=== PATIENT | male | born 1945 | race Caucasian/White ===

== ENCOUNTER 2017-05-04 16:35 | Emergency (ER) | payer OTHER ==
[~2017-05-04] VITALS: Ht 167.6 cm; Wt 93.9 kg
[~2017-05-04 16:35] MED LIST: CARVEDILOL12.5 M1 PO; COREG12.5 MG PO; LISINOPRIL10 MG PO; LORAZEPAM0.5 MG PO; OMEPRAZOLE DR20 M1 PO; SERTRALINE50 M1 PO; SIMVASTATIN20 M1 PO; TAMSULOSIN HYD0.4 M1 PO; VITAMIN D32000 I2 PO
[2017-05-04 16:57] VITALS: BP 150/56
== END 2017-05-04 18:45 | disposition home or self-care (01) ==
LOC: ED 16:35
DX: S82.001A Unspecified fracture of right patella, initial encounter for closed fracture (principal); I10 Essential (primary) hypertension; E11.9 Type 2 diabetes mellitus without complications; E78.00 Pure hypercholesterolemia, unspecified; Z98.890 Other specified postprocedural states; X50.9XXA Other and unspecified overexertion or strenuous movements or postures, initial encounter; Y93.89 Activity, other specified; Y92.89 Other specified places as the place of occurrence of the external cause; Y99.8 Other external cause status

== ENCOUNTER 2017-09-14 20:52 | Emergency (ER) | payer OTHER ==
[~2017-09-14] VITALS: Ht 165.1 cm; Wt 93.4 kg
[2017-09-14 21:20] VITALS: Ht 165.1 cm; Wt 93.4 kg
[2017-09-15 00:40] VITALS: BP 125/82
== END 2017-09-15 00:40 | disposition home or self-care (01) ==
LOC: ED 20:52
DX: H66.91 Otitis media, unspecified, right ear (principal); M25.511 Pain in right shoulder; I10 Essential (primary) hypertension; E11.9 Type 2 diabetes mellitus without complications; E78.00 Pure hypercholesterolemia, unspecified

== ENCOUNTER 2017-10-11 18:18 | Inpatient (IN) | payer OTHER ==
[~2017-10-11] VITALS: Ht 160 cm; Wt 89.6 kg
[2017-10-11 18:48] VITALS: Ht 160 cm; Wt 89.6 kg
[2017-10-11 21:06] LABS: CALCIUM 8.5 mg/dL (8.5-10.1); CARBON DIOXIDE 31.8 mmol/L (21-32); CHLORIDE SERUM 98 mmol/L (98-107); GLUCOSE SERUM 110 mg/dL (74-106); POTASSIUM SERUM 3.1 mmol/L (3.5-5.1); SODIUM SERUM 138 mmol/L (136-145)
[2017-10-11 21:07] LABS: BASOPHIL % 0.6 % (0-2); PLATELET COUNT 189 x10^3mcL (130-400)
[2017-10-11 21:08] LABS: RED CELL DISTRIBUTION WIDTH 15.2 % (11.5-14.5)
[2017-10-11 21:10] LABS: ALBUMIN 3.6 g/dL (3.4-5.0); ALKALINE PHOSPHATASE 75 U/L (46-116); ALT/SGPT 39 U/L (16-63); AST/SGOT 29 U/L (15-37); BILIRUBIN TOTAL 0.39 mg/dL (0.20-1.00); CHOLESTEROL 126 mg/dL (<200); HDL CHOLESTEROL 42 mg/dL (40-60); TOTAL PROTEIN, SERUM 7.6 g/dL (6.4-8.2)
[2017-10-11 21:55] LABS: microscopic required? NO
[2017-10-11 22:01] LABS: urine erythrocyte NEGATIVE (NEGATIVE)
[2017-10-11 23:38] VITALS: BP 142/77
[2017-10-12] MEDS ORDERED: METFORMIN HCL500 MG PO (00:40)
[2017-10-12 02:04] LABS: MAGNESIUM 1.8 mg/dL (1.8-2.4); PHOSPHOROUS 3.3 mg/dL (2.5-4.9)
[2017-10-12 02:06] LABS: T3 TOTAL 1.04 ng/mL
[2017-10-12 02:20] LABS: FREE T4 0.95 ng/dL (0.76-1.46); FREE THYROXINE INDEX 2.1 ug/dL (1.4-4.5); T4(THYROXINE) 6.2 ug/dL (4.7-13.3)
[2017-10-12 02:28] LABS: IRON 40 ug/dL (65-170); TOTAL IRON BINDING CAPACITY 374 ug/dL (250-450)
[2017-10-12 02:37] LABS: CHOLESTEROL/HDL RATIO 3.1
[2017-10-12 03:23] LABS: RED BLOOD CELLS 4.37 M/mm3 (4.52-5.90)
[2017-10-12 05:53] VITALS: BP 114/72
[2017-10-12 05:58] LABS: AMPHETAMINE QUAL UR NONE DETECTED (NEG <=1000)
[2017-10-12 06:31] LABS: BASOPHIL % 0.2 % (0-2); CALCIUM 8.2 mg/dL (8.5-10.1); CARBON DIOXIDE 28.9 mmol/L (21-32); CHLORIDE SERUM 99 mmol/L (98-107); CREATININE SERUM 1.1 mg/dL (0.7-1.3); GLUCOSE SERUM 222 mg/dL (74-106); MAGNESIUM 1.8 mg/dL (1.8-2.4); PHOSPHOROUS 3.6 mg/dL (2.5-4.9); PLATELET COUNT 173 x10^3mcL (130-400); POTASSIUM SERUM 3.3 mmol/L (3.5-5.1); SODIUM SERUM 137 mmol/L (136-145)
[2017-10-12 06:44] LABS: RED CELL DISTRIBUTION WIDTH 15.4 % (11.5-14.5)
[2017-10-12 10:00] VITALS: BP 140/52
[2017-10-12 12:36] VITALS: BP 125/70
[2017-10-12 17:42] VITALS: BP 98/48
[2017-10-12 21:15] VITALS: BP 135/60
[2017-10-13 04:58] VITALS: BP 123/50
[2017-10-13 06:50] LABS: BASOPHIL % 0.3 % (0-2); PLATELET COUNT 176 x10^3mcL (130-400)
[2017-10-13 07:01] LABS: CARBON DIOXIDE 27.6 mmol/L (21-32); CHLORIDE SERUM 105 mmol/L (98-107); CREATININE SERUM 0.9 mg/dL (0.7-1.3); GLUCOSE SERUM 106 mg/dL (74-106); PHOSPHOROUS 3.3 mg/dL (2.5-4.9); POTASSIUM SERUM 4.2 mmol/L (3.5-5.1); SODIUM SERUM 140 mmol/L (136-145)
[2017-10-13 08:22] VITALS: BP 107/55
[2017-10-13 13:29] VITALS: BP 135/65
[2017-10-13 17:41] VITALS: BP 130/71
[2017-10-13 22:25] VITALS: BP 130/68
[2017-10-14 06:05] VITALS: BP 145/76
[2017-10-14 06:46] LABS: BASOPHIL % 0.6 % (0-2); PLATELET COUNT 176 x10^3mcL (130-400)
[2017-10-14 06:49] LABS: CALCIUM 8.2 mg/dL (8.5-10.1); CARBON DIOXIDE 29.9 mmol/L (21-32); CHLORIDE SERUM 103 mmol/L (98-107); GLUCOSE SERUM 81 mg/dL (74-106); MAGNESIUM 1.7 mg/dL (1.8-2.4); POTASSIUM SERUM 4.6 mmol/L (3.5-5.1); SODIUM SERUM 139 mmol/L (136-145)
[2017-10-14 06:55] LABS: RED CELL DISTRIBUTION WIDTH 15.1 % (11.5-14.5)
[2017-10-14 09:20] VITALS: BP 127/62
[2017-10-14] MEDS ORDERED: MEDDP PO (13:13)
[2017-10-14 13:34] VITALS: BP 127/62
[2017-10-14 13:51] VITALS: BP 130/67
== END 2017-10-14 19:24 | disposition home or self-care (01) | DRG 205 ==
LOC: ED 18:18 → DU 22:46
PROVIDERS: Emergency Medicine; Family Medicine
DX: M94.0 Chondrocostal junction syndrome [Tietze] (principal); I50.43 Acute on chronic combined systolic (congestive) and diastolic (congestive) heart failure; D68.69 Other thrombophilia; I11.0 Hypertensive heart disease with heart failure; J20.9 Acute bronchitis, unspecified; K21.9 Gastro-esophageal reflux disease without esophagitis; E87.6 Hypokalemia; E11.59 Type 2 diabetes mellitus with other circulatory complications; E11.65 Type 2 diabetes mellitus with hyperglycemia; I10 Essential (primary) hypertension; D64.9 Anemia, unspecified; F41.9 Anxiety disorder, unspecified; F32.9 Major depressive disorder, single episode, unspecified; E66.9 Obesity, unspecified; Z68.35 Body mass index [BMI] 35.0-35.9, adult; Z99.81 Dependence on supplemental oxygen; Z79.84 Long term (current) use of oral hypoglycemic drugs
CPT/HCPCS: 82962; 83880; 84439; 87804; 90658; 94150; J1644; J1956; J2930; J3490; J7030; J7613; J7620; J7633; Q0092